=== PATIENT | male | born 1935 | race Caucasian/White ===

== ENCOUNTER 2021-07-07 17:28 | Emergency (ER) | payer OTHER ==
[~2021-07-07] VITALS: Ht 188 cm; Wt 84.4 kg
[~2021-07-07 17:28] MED LIST: AMLODIPINE BESYL5 MG PO; ASPIRIN325 MG PO; BACTRIM DS TAB1 EACH PO; CALTRATE 600 + D3 PO; CENTRUM SILVER1 EAC1 PO; COMBIGAN EYE DRO5 ML OU; FISH OIL OMEGA1 EACH PO; FLOMAX0.4 MG PO; LATANOPROST2.5 ML OU; LEVAQUIN500 MG PO; LOPRESSOR25 MG PO; METAMUCIL PO; METAMUCIL0.52 GM PO; METOPROLOL TART25 MG PO; MULTAQ 400MG T400 MG PO; OMEPRAZOLE20 MG PO; PENICILLIN V P500 MG PO; PLAVIX75 MG PO; PRIMIDONE250 MG PO; PRIMIDONE50 MG PO; SUPER B COMPLE150 MG PO; TERAZOSIN HCL5 MG PO; VITAMIN B-6100 MG PO; VITAMIN B12-FO1 EACH PO; VITAMIN D1000 UNIT PO; VITAMIN E400 UNI2 PO
[2021-07-07] MEDS ORDERED: ACETAMINOPHEN 325 MG TAB PO NR (18:00)
[2021-07-07 18:17] LABS: BASOPHILS % 0.3 % (0.0-1.0); EOSINOPHILS # (AUTO) 0.2 (0.0-0.4); EOSINOPHILS % 2.5 % (0.0-6.0); HEMATOCRIT 39.5 % (38.2-49.6); HEMOGLOBIN 13.5 g/dL (14.0-18.0); LYMPHOCYTES # (AUTO) 0.9 (1.0-3.2); LYMPHOCYTES % 11.3 % (18.0-39.1); MEAN CORPUSCULAR HEMOGLOBIN 31.3 pg (28-32); MEAN CORPUSCULAR HGB CONC 34.2 g/dL (31-35); MEAN CORPUSCULAR VOLUME 91.4 fL (81-99); MONOCYTES # (AUTO) 0.7 (0.2-0.8); MONOCYTES % 9.7 % (4.4-11.3); NEUTROPHILS # (AUTO) 5.7 (2.1-6.9); NEUTROPHILS % 75.9 % (38.7-80.0); PLATELET COUNT 191 x10e3/uL (140-360); RED BLOOD COUNT 4.32 x10e6/uL (4.3-5.7); RED CELL DISTRIBUTION WIDTH 13.4 % (11.7-14.4)
[2021-07-07 18:24] LABS: CLARITY,URINE SL CLOUDY (CLEAR); COLOR,URINE AMBER (YELLOW); KETONES,URINE TRACE (NEGATIVE); LEUKOCYTE ESTERASE ,URINE NEGATIVE (NEGATIVE); NITRITE,URINE NEGATIVE (NEGATIVE); PROTEIN,URINE DIPSTICK 2+ (NEGATIVE); URINE UROBILINOGEN 4 mg/dL (0.2 - 1)
[2021-07-07] MEDS ORDERED: IBUPROFEN 400 MG TAB PO NR (18:30)
[2021-07-07 18:32] LABS: ALBUMIN 3.2 g/dL (3.5-5.0); ALBUMIN/GLOBULIN RATIO 0.9 (0.8-2.0); ANION GAP 13.8 mmol/L (8-16); CALCIUM 7.9 mg/dL (8.4-10.2); CREATININE, SERUM 0.98 mg/dL (0.72-1.25); POTASSIUM 3.8 mmol/L (3.5-5.1)
[2021-07-07 18:39] LABS: AMORPHOUS SEDIMENT,URINE MODERATE (FEW); BACTERIA,URINE MODERATE /HPF; EPITHELIAL CELLS,URINE FEW /LPF
[2021-07-07] MEDS ORDERED: CEFTRIAXONE 1 GM VIAL IV ONE (20:30)
[2021-07-07] MEDS ORDERED: CASIRIVIMAB/IMDEVIMAB 10 ML in SODIUM CHLORIDE 0.9% 100 ML IV ONE (21:15)
[2021-07-07] MEDS ORDERED: CEFTRIAXONE 1 GM in SODIUM CHLORIDE 0.9% 50ML 50 ML IV ONE (21:15)
[2021-07-07] MEDS ORDERED: ACETAMINOPHEN 325 MG TAB PO ONE (22:00)
[2021-07-07] MEDS ORDERED: ACETAMINOPHEN 325 MG TAB ONE (22:05)
[2021-07-07] MEDS ORDERED: CEFDINIR300 MG PO (23:03)
== END 2021-07-08 00:02 | disposition home or self-care (01) ==
LOC: ER 17:56
DX: R50.9 Fever, unspecified (principal); R05 Cough; U07.1 COVID-19; M06.9 Rheumatoid arthritis, unspecified; I48.91 Unspecified atrial fibrillation; H40.9 Unspecified glaucoma; K21.9 Gastro-esophageal reflux disease without esophagitis
CPT/HCPCS: 36415; 71045; 80053; 81001; 84484; 85025; 87086; 93005; 99284; J0696; U0002

== ENCOUNTER 2021-07-08 16:34 | Emergency (ER) | payer OTHER ==
[~2021-07-08] VITALS: Ht 188 cm; Wt 84.4 kg
[~2021-07-08 16:34] MED LIST changes: +CEFDINIR300 MG PO
[2021-07-08] MEDS ORDERED: CASIRIVIMAB/IMDEVIMAB 10 ML in SODIUM CHLORIDE 0.9% 100 ML IV ONE (17:00)
[2021-07-08 19:39] VITALS: BP 124/58
== END 2021-07-08 19:42 | disposition home or self-care (01) ==
LOC: ER 17:20
DX: U07.1 COVID-19 (principal); I48.91 Unspecified atrial fibrillation; M06.9 Rheumatoid arthritis, unspecified
CPT/HCPCS: 99283; J7050

== ENCOUNTER 2021-11-27 22:20 | Emergency (ER) | payer OTHER ==
[~2021-11-27] VITALS: Ht 188 cm; Wt 83.9 kg
[2021-11-27] MEDS ORDERED: CEFDINIR300 MG PO (22:51)
[2021-11-27 22:52] VITALS: BP 147/80
== END 2021-11-27 22:58 | disposition home or self-care (01) ==
LOC: FSED 22:45
DX: R30.0 Dysuria (principal); N34.2 Other urethritis; I48.91 Unspecified atrial fibrillation; M06.9 Rheumatoid arthritis, unspecified; H40.9 Unspecified glaucoma; K21.9 Gastro-esophageal reflux disease without esophagitis
CPT/HCPCS: 81003; 87086; 99282

== ENCOUNTER 2022-05-28 19:26 | Emergency (ER) | payer MEDICARE, OTHER ==
[~2022-05-28] VITALS: Ht 188 cm; Wt 83.9 kg
== END 2022-05-28 19:55 | disposition home or self-care (01) ==
LOC: ER 19:32
DX: R03.0 Elevated blood-pressure reading, without diagnosis of hypertension (principal); R94.31 Abnormal electrocardiogram [ECG] [EKG]; M06.9 Rheumatoid arthritis, unspecified; H40.9 Unspecified glaucoma; K21.9 Gastro-esophageal reflux disease without esophagitis
CPT/HCPCS: 93005; 99282